=== PATIENT | male | born 1950 | race Caucasian/White ===

== ENCOUNTER → 2021-06-15 14:48 | Outpatient (CLI) | payer MEDICARE, SELFPAY ==
--- NOTE | ~2021-06-15 | XR_ITS ---
EXAMINATION: XR knee RT 3V DATE: 06/15/2021 15:09 INDICATION: Right knee pain TECHNIQUE: Three views of the right knee were obtained. COMPARISON: None. FINDINGS: Alignment is normal. No fracture or osteochondral lesion. There is tricompartmental osteoar thritis, severe in the lateral patellofemoral compartment. There is a moderate size knee joint effusi on. Soft tissues are unremarkable. IMPRESSION: 1. Tricompartmental osteoarthritis, severe in the lateral patellofemoral compartment. Reviewed, dictated and finalized at location F. IMPRESSION: 1. Tricompartmental osteoarthritis, severe in the lateral patellofemoral compar tment.
== END ==
PROVIDERS: PCP Family Medicine; Visit Provider Family Medicine
DX: M17.11 Unilateral primary osteoarthritis, right knee (principal)
CPT/HCPCS: 73562

== ENCOUNTER 2022-02-28 08:41 | Outpatient (CLI) | payer MEDICARE, SELFPAY ==
[2022-02-28 09:09] LABS: Basophils Absolute Auto 0.1 K/mm3 (0.0-0.1); Basophils Percent Auto 0.9 % (0.2-1.2); Eosinophils Absolute Auto 0.7 K/mm3 (0-0.3); Eosinophils Percent Auto 10.5 % (0-4.4); Hematocrit 39.7 % (42.0-52.0); Hemoglobin 13.3 g/dL (14.0-18.0); Immature Granulocyte Absolute 0.02 K/mm3 (0.00-0.031); Immature Granulocyte Percent A 0.3 % (0-0.5); Lymphocytes Absolute Auto 1.39 K/mm3 (0.9-3.2); Mean Corpuscular HGB Conc 33.5 g/dl (32-36); Mean Corpuscular Hemoglobin 31.7 pg (26-34); Mean Corpuscular Volume 94.5 fl (80-100); Mean Platelet Volume 8.6 fl (7.4-10.4); Monocytes Absolute Auto 0.5 K/mm3 (0.1-0.6); Monocytes Percent Auto 6.9 % (2.6-8.5); Neutrophils Absolute Auto 4.3 K/mm3 (1.3-6.7); Neutrophils Percent Auto 61.4 % (45.5-73.1); Platelet Count Result 255 k/mm3 (150-375); Red Cell Distribution Width 14.1 % (11.5-14.5); White Blood Count 6.9 K/mm3 (4.5-10.0)
[2022-02-28 09:19] LABS: Alanine Aminotransferase 25 U/L (6-50); Albumin Level 4.2 g/dL (3.5-5.1); Alkaline Phosphatase 79 U/L (38-126); Anion Gap 5 mmol/L (8-16); Aspartate Amino Transferase 24 U/L (17-59); Bilirubin,Total 0.9 mg/dL (0.2-1.3); Blood Urea Nitrogen 16 mg/dL (9-20); Calcium 8.7 mg/dL (8.4-10.2); Carbon Dioxide 30 mmol/L (22-30); Chloride 105 mmol/L (98-107); Estimated Glomerular Filt Rate 60; Glucose 101 mg/dL (65-110); Potassium 3.9 mmol/L (3.4-5.0); Sodium 140 mmol/L (137-145)
--- NOTE | 2022-02-28 09:20 | ECG_ITS ---
Measurements Intervals [place] Rate: 61 P: 31 NV: 172 QRS: 17 QRSD: 93 T: 11 QT: 398 QTc: 401 Interpretive Statements SINUS RHYTHM MINIMAL Q WAVES- INFERIOR LEADS BORDERLINE ECG COMPARED TO ECG 09/05/2018 08:03:22 NO SIGNIFICANT CHANGES Electronically Signed On 02-28-2022 10:23:42 [employer]ING [employer] by Jose Alfredo Jimenez D.O.
[2022-02-28 09:50] LABS: Prostate Specific Antigen 5.3 ng/mL (< OR = 4.0)
== END 2022-02-28 08:42 | disposition home or self-care (01) ==
PROVIDERS: PCP Family Medicine; Referring Provider Physician Assistant; Visit Provider Orthopaedic Surgery
DX: M17.11 Unilateral primary osteoarthritis, right knee (principal); R97.20 Elevated prostate specific antigen [PSA]; I11.9 Hypertensive heart disease without heart failure; Z01.818 Encounter for other preprocedural examination; R94.31 Abnormal electrocardiogram [ECG] [EKG]
CPT/HCPCS: 36415; 80053; 84153; 85025; 93005

== ENCOUNTER 2022-04-26 09:52 | Outpatient (CLI) | payer MEDICARE, SELFPAY ==
[2022-04-26 11:21] LABS: Basophils Percent Auto 0.6 % (0.2-1.2); Eosinophils Absolute Auto 0.3 K/mm3 (0-0.3); Eosinophils Percent Auto 3.7 % (0-4.4); Hemoglobin 14.2 g/dL (14.0-18.0); Immature Granulocyte Absolute 0.03 K/mm3 (0.00-0.031); Immature Granulocyte Percent A 0.4 % (0-0.5); Lymphocytes Absolute Auto 1.48 K/mm3 (0.9-3.2); Mean Corpuscular Hemoglobin 30.8 pg (26-34); Mean Corpuscular Volume 93.3 fl (80-100); Mean Platelet Volume 8.9 fl (7.4-10.4); Monocytes Absolute Auto 0.5 K/mm3 (0.1-0.6); Monocytes Percent Auto 7.4 % (2.6-8.5); Neutrophils Absolute Auto 4.4 K/mm3 (1.3-6.7); Neutrophils Percent Auto 65.9 % (45.5-73.1); Platelet Count Result 216 k/mm3 (150-375); Red Blood Count 4.61 M/mm3 (4.6-6.20); Red Cell Distribution Width 13.3 % (11.5-14.5); White Blood Count 6.7 K/mm3 (4.5-10.0)
[2022-04-26 11:32] LABS: Appearance Urine Clear (Clear); Bilirubin Urine Negative (Negative); Blood Urine Negative (Negative); Color Urine Yellow (Yellow); Glucose Urine UA Negative (Negative); Ketones Urine Negative (Negative); Leukocyte Esterase Ur Negative LEU/UL (Negative); Nitrate Urine Negative (Negative); Protein Urine Negative (Negative); Specific Grav Ur 1.018 (1.001-1.035); Urobilinogen Urine 0.2 mg/dL (<2.0)
[2022-04-26 11:32] LABS: Albumin Level 4.6 g/dL (3.5-5.1); Anion Gap 5 mmol/L (8-16); Blood Urea Nitrogen 19 mg/dL (9-20); Calcium 9.4 mg/dL (8.4-10.2); Carbon Dioxide 33 mmol/L (22-30); Chloride 104 mmol/L (98-107); Estimated Glomerular Filt Rate > 60; Glucose 104 mg/dL (65-110); Potassium 4.9 mmol/L (3.4-5.0); Sodium 142 mmol/L (137-145)
[2022-04-26 11:33] LABS: Prothrombin Time 12.8 Seconds (11.1-14.7)
[2022-04-26 11:36] LABS: Hemoglobin A1C 5.2 % (<5.7)
[2022-04-26 12:12] LABS: Urine Cotinine NEGATIVE
[2022-04-26 12:16] LABS: Add Urine Microscopic? NO
== END 2022-04-26 09:53 | disposition home or self-care (01) ==
LOC: ANHSURGERY 09:56
PROVIDERS: PCP Family Medicine; Visit Provider Orthopaedic Surgery
DX: M17.11 Unilateral primary osteoarthritis, right knee (principal); Z01.818 Encounter for other preprocedural examination
CPT/HCPCS: 80048; 80307; 81003; 82040; 83036; 85025; 85610; 85730; 87081

== ENCOUNTER 2022-05-10 00:08 | Day surgery (SDC) | payer MEDICARE, SELFPAY ==
[2022-04-26 10:02] VITALS: BMI 25.2
--- NOTE | 2022-04-26 10:41 | PC.NURSE ---
Addendum entered by Yi Peterson RN 04/26/22 11:13: TAKE DOXAZOSIN MORNING OF SURGERY Original Note: Report to the Outpatient Waiting Room, entrance under the green pavilion located off [facility], at time _0600 on date 05/10/22 . Planned Procedure Time: 0730 . Time changes happen often and if your time is changed the preop area will call you the afternoon before. - You and your visitor will be asked to self-screen and do not enter if you have any COVID symptoms. - Only one visitor is requested with a max of two and NO children visitors are allowed at this time. - The patient visitor may be requested to leave or wait in car when not with patient due to distancing restrictions. - A mask is optional within the hospital at this time. Patients may have clear liquids (water, carbonated beverages, clear teas, apple juice) until 3 hours prior to surgery with a maximum of 20 ounces. - No food from midnight until time of surgery - Infants may have breast milk until 4 hours before surgery, formula 6 hours prior to surgery. - Children will be allowed to drink immediately following surgery. If applicable, please bring a bottle or sippy cup to assist with drinking. Juice, water, soda, and popsicles are readily available. For infants on formula, please bring formula the day of surgery. Pacifiers are allowed. Take the following medications with a SIP of water the morning of surgery: ___METOPROLOL DO NOT STOP ANY OF YOUR OTHER PRESCRIPTION MEDICATIONS PRIOR TO SURGERY ?EXCEPT THE FOLLOWING Medications to discontinue per physician ____ASPIRIN PER DR MARINO INSTRUCTIONS Please no make-up, nail macanese, hairspray, perfume, deodorant, or body powder the day of surgery. No jewelry (including any body piercings) or valuables the day of surgery, leave them at home. Please take a shower or bath the night before, or the morning of, surgery with an antibacterial soap. Wear comfortable, loose fitting clothing. Children are encouraged to wear pajamas. - Jewelry must be removed prior to entering the operating room. Rings and piercings that are not removed may be cut off. - The hospital will not accept responsibility for valuables. - Please leave all valuables, including medications, at home the day of surgery. If you are going home after surgery, a licensed tank driver must drive you home. - NO public transportation without another adult if you receive anesthesia. - We recommend that an adult stay with you for 24 hours following discharge. - We also recommend that you do not drive, make important decision, drink alcoholic beverages, or take any drugs that were not prescribed by your health care provider for at least 24 hours after your discharge time. For Pediatric surgeries, we recommend two adults accompany the child home. Follow any additional instructions given to you from your surgeon. If you or anyone in your household have experienced Covid symptoms in the past week, please notify your surgeon or the nurse liaison at the phone number below for possible testing. VERBAL AND WRITTEN instructions given to _PATIENT AND ANGELA and asked if any additional questions and then verbalized understanding. Patient advised to call surgeon office or pre surgery nurse liaison [phone] if any additional questions.
[2022-04-26 10:54] VITALS: BP 181/90; PULSE 56; RESP 18; TEMP 37; O2SAT 98
[2022-05-10] VITALS (15 sets, daily range): BP systolic 134–169; BP diastolic 72–94; PULSE 54–86; RESP 12–18; TEMP 36.2–37.1; O2SAT 97–100; BMI 27.5
--- NOTE | ~2022-05-10 | XR_ITS ---
XR_[id number]_CR DATE: 05/10/2022 10:11 INDICATION: Right total knee postoperative examination TECHNIQUE: Postoperative AP and crosstable lateral views of right knee COMPARISON: None FINDINGS: Status post right knee arthroplasty. Skin noe are noted along the anterior aspect of th e knee. There is expected postoperative subcutaneous and intra-articular gas. No fracture or dislocation, periosteal reaction or bone destruction or unusual radiopaque foreign bod y. IMPRESSION: Right knee arthroplasty Reviewed, dictated and finalized at Location A. Reviewed, dictated and finalized at location B. IMPRESSION: Right knee arthroplasty
[2022-05-10] MEDS: LACTATED RINGERS 1,000 ML 30 ML IV CONT ×2 (06:30→09:49)
[2022-05-10] MEDS: TRANEXAMIC ACID 1,000MG/ISO100 1,000 MG/100 ML BAG 200 MG IVPB (06:39)
[2022-05-10] MEDS: ACETAMINOPHEN 500 MG TABLET 1000 MG PO (06:39)
--- NOTE | 2022-05-10 06:43 | WPDANESEPPF ---
Anes - Initial Pre Proc Eval Procedure: Operation Date: 05/10/22 07:30 Proposed Procedures p Right Total Knee Arthroplasty - Naif Chavez MD Date/Time: 05/10/22 06:43 Surgeon: Naif Chavez MD Pre Op Diagnosis: right knee djd Patient Data Age: 72 Gender: M Height: 1.78 m Weight: 80 kg Last Vital Signs Temp 37.0 C 04/26/22 10:54 Pulse 56 L 04/26/22 10:54 Resp 18 04/26/22 10:54 BP 181/90 H 04/26/22 10:54 Pulse Ox 98 04/26/22 10:54 O2 Del Method Room Air 04/26/22 10:54 Allergies Allergy/AdvReac Type Severity Reaction Status Date / Time pravastatin Allergy Unknown leg cramps Verified 05/10/22 06:45 Home Medications Medication Instructions Recorded Confirmed Type aspirin 81 mg tablet,delayed 81 mg PO DAILY 12/30/18 05/10/22 History release rosuvastatin 20 mg tablet (Crestor) 20 mg PO DAILY 04/06/20 05/10/22 History metoprolol tartrate 25 mg tablet 12.5 mg PO BID 11/28/21 05/10/22 History doxazosin 4 mg tablet 4 mg PO DAILY #30 tabs 04/17/22 05/10/22 Rx acetaminophen 650 mg 1,300 mg PO Q12H PRN Pain 04/26/22 05/10/22 History tablet,extended release (Tylenol Arthritis Pain) Patient hx anesthesia problems: none Family hx anesthesia problems: none Results Review: All pre-operative results and documents have been reviewed as part of the pre-operative evaluation. [facility] Past Medical History Medical History (Updated 05/09/22 @ 14:17 by Andres Goldstein DO) Arthritis Heart attack 2019 HLD (hyperlipidemia) Hypertension with heart disease Left knee DJD Right knee DJD Surgical History Surgical History (Updated 05/09/22 @ 14:17 by Andres Goldstein DO) History of back surgery History of coronary artery stent placement x2, 2019 Family History Family History Mother Hypertension Father Family history of emphysema Social History Social History Smoking status: Never smoker Second hand tobacco smoke exposure: No Additional smoking assessment comments: DENIES ANY FORM OF TOBBACO Alcohol intake: current Alcohol use details: social Substance use: never Substance use type: does not use Living arrangements: with family Occupation/Education: retired Gender identity (if verbalized by the patient): Male Sexual Orientation (if Verbalized by the Patient): Straight or Heterosexual Spiritual care concerns: No Anes - Eval Final PreProcedure Day of Procedure 05/10/22 06:43 Patient weight: normal Heart: regular rate and rhythm Lungs: clear to auscultation Airway: Mallampati scale class II Neurological: alert and oriented Last oral intake: >/= 8 hours ASA classification: III Emergent: no Anesthetic plan: proceed Anesthesia type and monitoring: general LMA and standard monitoring Results Review: All pre-operative results and documents have been reviewed as part of the pre-operative evaluation. Informed Consent: The patient's anesthetic plan and its attendant risks and benefits were discussed with the patient/family/POA. Questions were solicited and answers provided to the satisfaction of the patient/family/POA.
--- NOTE | 2022-05-10 06:51 | WPDANESPNB ---
Anes - Peripheral Nerve Block Date/Time: 05/10/22 06:51 I have discussed with the patient/family/POA the placement of a peripheral nerve block for post-operative pain management, including associated risks, benefits, complications, and side effects. Alternative methods of post-operative analgesia were detailed. Questions were solicited and answers provided to the satisfaction of the patient/family/POA. Time-Out: A pre-procedural Time-Out was completed immediately before starting the procedure and confirmed: Patient Identification, Site, Procedure, Patient Position and the Availability of Requisite Equipment. Clinical Indications: Acute post-operative pain management requested by the operative surgeon. Nerve Block Insertion Note Anes-nerve block: adductor canal right Patient position: supine Skin prep: chlorhexidine Needle: 22 gauge, stimulating, insulated echogenic needle. Needle length: 80 mm Technique: ultrasound Injectate: bupivacaine 0.5% with epi 5 mcg/ml (30cc - no epi) Observations: tolerated well Complications: none Procedure start time:: 722 Procedure end time:: 725
--- NOTE | 2022-05-10 07:14 | WPDHPUPDATE1 ---
History and Physical Update Update Date/Time: 05/10/22 07:14 History and Physical has been reviewed, including an updated exam of the patient. There are NO changes in the patient's condition. Risks, benefits, and alternatives have been discussed and questions answered. Patient agrees to proceed with procedure.
[2022-05-10] MEDS: ceFAZolin 2 GM/D5W 50 ML 2 GM/50 ML BAG IVPB ×3 (07:30→23:39)
[2022-05-10] MEDS: GENTAMICIN BONE CEMENT REFOBACIN 1 EACH TOPICAL (08:38)
[2022-05-10] MEDS: TRANEXAMIC ACID 1,000 MG/10 ML AMPUL 1000 MG IV PUSH (08:52)
[2022-05-10] MEDS: fentaNYL CITRATE INJ (*CRX) 100 MCG/2 ML VIAL 25 MCG IV PUSH ×8 (09:52→10:42)
--- NOTE | 2022-05-10 09:54 | W.PM.PROC2 ---
Procedure Note - Detailed Date of Procedure 05/10/22 Pre-op Diagnosis right knee djd Post-op Diagnosis Same Procedure Performed R TKA Surgeon Naif Chavez MD Anesthesia General Description of Procedure THE RIGHT KNEE WAS PREPPED AND DRAPED IN THE STERILE FASHION. THERE WAS A 10 DEGREE FLEXION CONTRACTURE. A MIDLINE SKIN INCISION WAS MADE. A MEDIAL PARAPATELLAR ARTHROTOMY WAS MADE. THE PATELLA WAS EVERTED. THERE WAS TRICOMPARTMENT DJD. THERE WAS MINIMAL PATELLA DJD. AN INTRAMEDULLARY PRIYA WAS PLACED IN THE FEMUR. A DISTAL FEMORAL CUT WAS MADE IN 5 DEGREES OF VALGUS REMOVING APPROXIMATELY 9 MM OF BONE FROM THE DISTAL FEMUR. THE FEMUR WAS SIZED TO 67.5. A 67.5 FEMORAL CUTTING BLOCK WAS PLACED IN 3 DEGREES OF EXTERNAL ROTATION AND IN ALIGNMENT WITH TIMMY'S LINE AND THE TRANSEPICONDYLAR AXIS. ANTERIOR POSTERIOR AND CHAMFER CUTS WERE MADE. THE CUTS WERE EXCELLENT. NEXT AN INTRAMEDULLARY CUTTING GUIDE WAS PLACED IN THE TIBIA. A TRANS TIBIAL CUT WAS MADE ALONG THE LONG AXIS OF THE TIBIA. APPROXIMATELY 10 MM OF BONE WAS REMOVED FROM THE HIGH SIDE OF THE TIBIA. THE TIBIA WAS THEN PLANED TO A SMOOTH SURFACE. POSTERIOR FEMORAL OSTEOPHYTES WERE REMOVED FROM THE FEMORAL CONDYLES. A 75 TIBIAL TRIAL WAS PLACED IN ALIGNMENT WITH THE 1/3 MEDIAL ASPECT OF THE TIBIAL TUBERCLE. THEN A 67.5 FEMORAL TRIAL COMPONENT WAS PLACED. BOTH HAD EXCELLENT FITS. EVENTUALLY A 10 MM CR POLYETHYLENE TRIAL COMPONENT WAS PLACED. THE KNEE WAS TAKEN THROUGH A RANGE OF MOTION. THE KNEE CAME OUT TO FULL EXTENSION. THERE WAS NO ABNORMAL TILT TO THE PATELLA. THERE WAS GOOD A/P AND VARUS/VALGUS STABILITY. THERE WAS NO EXCESSIVE ROLL BACK WITH FLEXION. THE TRIAL COMPONENTS WERE REMOVED. THEN A 67.5 FEMORAL COMPONENT AND 75 TIBIAL COMPONENT WITH A 10 CR POLYETHYLENE COMPONENT WERE CEMENTED INTO PLACE. ONCE THE CEMENT WAS HARD THE KNEE WAS TAKEN THROUGH A ROM AGAIN AND FOUND TO BE STABLE WITH NO PATELLA TILT NO EXCESSIVE ROLL BACK WITH FLEXION AND GOOD STABILITY WITH COMPLETE AND FULL EXTENSION. THE KNEE WAS IRRIGATED WITH STERILE BETADINE AND WATER FOR ABOUT 3 MINUTES. THE BLEEDERS WERE CAUTERIZED. THE ARTHROTOMY WAS REPAIRED WITH NUMBER 1 VICRYL. THE SUB CUTANEOUS LAYER WITH 2-0 VICRYL AND THE SKIN WITH JONATHAN. THE WOUND WAS WASHED AND A STERILE DRESSING WAS APPLIED. PATIENT WAS EXTUBATED. Estimated Blood Loss -150.0 Pathology None sent Complications No immediate complications Condition Stable Disposition PACU
[2022-05-10] MEDS: SODIUM CHLORIDE 0.9% IV 1,000 ML 125 ML IV CONT (11:53)
[2022-05-10] MEDS: KETOROLAC 15 MG/ML VIAL (*BKC) IV PUSH ×3 (11:53→23:39)
--- NOTE | 2022-05-10 12:05 | ADMGEN ---
This patient, Russell Lau, was admitted to [facility] Surg Room 309-01 at 1110. Patient/family oriented to hospital policies and general routines including ID bracelet, bed and alarms, visiting hours, pain management, procedures, bathroom and other care routines, personal items, smoking policy, room service/diet, and visiting hours. Information on how to activate the Rapid Response Team has been discussed. Patient/Family are encouraged to report perceived risks to care and to ask questions if they do not understand what they are told or what they should do.
[2022-05-10] MEDS: SENNA/DOCUSATE SODIUM TABLET 2 TAB PO (16:59)
[2022-05-10] MEDS: ASPIRIN 325 MG ENTERIC TABLET PO (21:31)
[2022-05-10] MEDS: METOPROLOL TARTRATE 12.5 MG TABLET PO (21:31)
[2022-05-10] MEDS: FAMOTIDINE 20 MG TABLET PO (21:31)
[2022-05-10] MEDS: ROSUVASTATIN 10 MG TABLET 20 MG PO (21:32)
[2022-05-11 00:02] VITALS: BP 129/76; PULSE 73; RESP 15; TEMP 36.7; O2SAT 96
[2022-05-11 04:00] VITALS: BP 131/78; PULSE 66; RESP 16; TEMP 36.2; O2SAT 95
[2022-05-11] MEDS: KETOROLAC 15 MG/ML VIAL (*BKC) IV PUSH ×2 (05:48→13:00)
[2022-05-11 06:32] LABS: Basophils Percent Auto 0.3 % (0.2-1.2); Eosinophils Percent Auto 0.4 % (0-4.4); Hematocrit 33.4 % (42.0-52.0); Immature Granulocyte Absolute 0.05 K/mm3 (0.00-0.031); Immature Granulocyte Percent A 0.5 % (0-0.5); Lymphocytes Percent Auto 12.2 % (18.3-44.2); Mean Corpuscular HGB Conc 32.9 g/dl (32-36); Mean Corpuscular Hemoglobin 30.6 pg (26-34); Mean Corpuscular Volume 92.8 fl (80-100); Mean Platelet Volume 9.3 fl (7.4-10.4); Monocytes Absolute Auto 0.9 K/mm3 (0.1-0.6); Monocytes Percent Auto 9.5 % (2.6-8.5); Neutrophils Absolute Auto 7.6 K/mm3 (1.3-6.7); Neutrophils Percent Auto 77.1 % (45.5-73.1); Platelet Count Result 208 k/mm3 (150-375); Red Cell Distribution Width 13.3 % (11.5-14.5); White Blood Count 9.9 K/mm3 (4.5-10.0)
[2022-05-11 06:39] LABS: Anion Gap 4 mmol/L (8-16); Blood Urea Nitrogen 22 mg/dL (9-20); Calcium 8.4 mg/dL (8.4-10.2); Carbon Dioxide 28 mmol/L (22-30); Chloride 105 mmol/L (98-107); Estimated CRCL calculation 53 ml/min; Estimated Glomerular Filt Rate 60; Glucose 112 mg/dL (65-110); Potassium 4.7 mmol/L (3.4-5.0); Sodium 137 mmol/L (137-145)
[2022-05-11 08:36] VITALS: PULSE 66
[2022-05-11] MEDS: DOXAZOSIN MESYLATE 4 MG TABLET PO (08:36)
[2022-05-11] MEDS: FAMOTIDINE 20 MG TABLET PO (08:36)
[2022-05-11] MEDS: ceFAZolin 2 GM/D5W 50 ML 2 GM/50 ML BAG IVPB (08:36)
[2022-05-11] MEDS: ASPIRIN 325 MG ENTERIC TABLET PO (08:36)
[2022-05-11] MEDS: SENNA/DOCUSATE SODIUM TABLET 2 TAB PO (08:36)
[2022-05-11] MEDS: METOPROLOL TARTRATE 12.5 MG TABLET PO (08:36)
[2022-05-11] MEDS: polyethylene glycoL 3350 17 GM POWD.PACK PO (08:36)
[2022-05-11 08:48] VITALS: BP 132/81; PULSE 57; RESP 17; TEMP 36.4; O2SAT 98
--- NOTE | 2022-05-11 09:02 | P.PNAN_ITS ---
Anes - Prog Note Post-Op Date/Time: 05/11/22 09:02 Cardiovascular status: normal Respiratory status: normal Airway patency: baseline Mental status: baseline Post-Op hydration status: normal Vital Signs: Last Vital Signs Temp 97.5 F L 05/11/22 08:48 Pulse 57 L 05/11/22 08:48 Resp 17 05/11/22 08:48 BP 132/81 05/11/22 08:48 Pulse Ox 98 05/11/22 08:48 O2 Del Method Room Air 05/10/22 13:38 O2 Flow Rate 8 05/10/22 10:05 Pain Score (VAS): 0/10 I/O: Intake & Output 05/10/22 05/11/22 05/11/22 23:59 07:59 15:59 Intake Total 120 50 Output Total 1030 Balance 120 -980 Laboratory Tests 05/11/22 06:06 05/11/22 06:06 05/10/22 05/11/22 05/11/22 06:20 06:06 06:06 WBC 9.9 RBC 3.60 L Hgb 11.0 L D Hct 33.4 L MCV 92.8 MCH 30.6 MCHC 32.9 RDW 13.3 Plt Count 208 MPV 9.3 Immature Gran % (Auto) 0.5 Neut % (Auto) 77.1 H Lymph % (Auto) 12.2 L [place] % (Auto) 9.5 H Eos % (Auto) 0.4 Baso % (Auto) 0.3 Lymph # (Auto) 1.20 [place] # (Auto) 0.9 H Eos # (Auto) 0.0 Baso # (Auto) 0.0 Abs Immat Gran (auto) 0.05 H Absolute Neuts (auto) 7.6 H Absolute Nucleated RBC 0.0 Nucleated RBC % 0.0 Sodium 137 Potassium 4.7 Chloride 105 Carbon Dioxide 28 Anion Gap 4 L BUN 22 H Creatinine 1.20 Estim Creat Clear Calc 53 Estimated GFR 60 Glucose 112 H Calcium 8.4 Blood Type O Positive Antibody Screen Negative Post-procedural complaints: none Patient Feedback: Patient satisfied with anesthetic care.
--- NOTE | 2022-05-11 13:01 | PM.PNORT ---
Progress Note: A&P Assessment and Plan (1) S/P total knee arthroplasty: Qualifiers: Laterality: right Qualified Code(s): Z96.651 - Presence of right artificial knee joint Code(s): Z96.659 - Presence of unspecified artificial knee joint Status: Acute Assessment and Plan: POD #1 : Right TKA Continue PT/OT. WBAT. Walker. HIGH FALL RISK. Continue pain control. Ice Knee. Protect skin. DVT prophylaxis with Aspirin. SCDs. Incentive Spirometry Use reviewed. Monitor Dressing. Change prior to discharge. Bowel Regimen. Dispo: Home with Home Health pending progress with PT/OT Subjective Subjective Date/Time Seen: 05/11/ 13:01 Post Op day: 1 Interval history: POD #1: Right TKA Pain well controlled. Working very well with PT/OT. Hopeful for discharge home today. Review of Systems Review of Systems: All systems reviewed & are unremarkable except as noted in HPI and below Constitutional: Constitutional: Denies fever(s) and Denies headache(s) ENT: Denies headache(s) Cardiovascular: Cardiovascular: Denies chest pain, Denies diaphoresis, Denies palpitations and Denies dyspnea Respiratory: Respiratory: Denies dyspnea Gastrointestinal: Gastrointestinal: Denies abdominal pain, Denies constipation, Denies nausea and Denies vomiting Genitourinary: Genitourinary: Denies dysuria and Reports nocturia Musculoskeletal: Musculoskeletal: Reports arthralgias (Right Knee ) and Reports joint swelling (Right Knee ) Neurologic: Denies headache(s) Endocrine: Endocrine: Denies palpitations Exam Const: General: comfortable and no acute distress Resp: Effort & Inspection: normal respiratory effort Cardio: Rate: regular rate Rhythm: regular rhythm GI: GI Palp: Yes Soft to palpation, No Tenderness to palpation present (GI) and No Guarding due to palpation present (GI) Skin: General skin exam: wounds noted Wounds: wounds noted Other: Incision c/d/i. No surrounding redness/warmth. No hematoma. Mild ecchymosis. No wound dehiscence Neuro: Cognition (Neuro): normal cognition Other: NV intact aside from block. Moves toes. Sensation intact to light touch. +ankle dorsiflexion/plantarflexion. Extrem: Right lower extremity: normal to inspection, knee Details: tenderness (diffuse, mild ) Location: of the patella, swelling (diffuse, consistent with surgical intervention ), abnormal ROM Details: pain with active ROM during, pain with passive ROM during and with range as follows (limited due to recent surgical intervention ); able to extend lower leg actively and ecchymosis (mild ), lower leg (Negative Mary's Sign ) Details: normal to inspection; no erythema and no tenderness, ankle (+ankle dorsiflexion/plantarflexion ) Details: normal to inspection, no edema and normal ROM; no tenderness, no swelling and no ecchymosis and foot Details: normal capillary refill, normal to inspection, vascular exam Details: dorsalis pedis pulse present and motor-sensory exam Details: light-touch normal; no tenderness Left lower extremity: normal to inspection Psych: Mental Status: mental status grossly normal Objective Data Vital Signs Vital Signs: Vital Signs - 24 hr 05/10/22 13:38 05/10/22 16:40 05/10/22 20:03 Temperature 37.0 C 36.9 C Pulse Rate 71 86 Respiratory Rate 18 15 Blood Pressure 135/72 134/74 Pulse Oximetry 97 97 Oxygen Delivery Room Air 05/10/22 21:31 05/11/22 00:02 05/11/22 04:00 Temperature 36.7 C 36.2 C L Pulse Rate 77 73 66 Respiratory Rate 15 16 Blood Pressure 129/76 131/78 Pulse Oximetry 96 95 Oxygen Delivery 05/11/22 08:36 05/11/22 08:48 05/11/22 08:00 Temperature 36.4 C L Pulse Rate 66 57 L Respiratory Rate 17 Blood Pressure 132/81 Pulse Oximetry 98 Oxygen Delivery Room Air Intake/Output Intake/Output: Intake & Output 05/08/22 05/09/22 05/10/22 05/11/22 23:59 23:59 23:59 23:59 Intake Total 690 290 Output Total 100 1030 Balance 5
--- NOTE | 2022-05-11 13:05 | PM.DS ---
DS: Admitting Diagnosis Discharge Date 05/11/22 Admitting Diagnosis Right Knee DJD DS: Discharge Diagnosis Discharge Diagnosis (1) S/P total knee arthroplasty: Qualifiers: Laterality: right Qualified Code(s): Z96.651 - Presence of right artificial knee joint Code(s): Z96.659 - Presence of unspecified artificial knee joint Status: Acute Assessment and Plan: POD #1 : Right TKA Continue PT/OT. WBAT. Walker. HIGH FALL RISK. Continue pain control. Ice Knee. Protect skin. DVT prophylaxis with Aspirin. SCDs. Incentive Spirometry Use reviewed. Monitor Dressing. Change prior to discharge. Bowel Regimen. Dispo: Home with Home Health pending progress with PT/OT DS: Summary Hospital Course Reason for hospitalization: Right TKA Hospital Course: 72 year old male admitted s/p Right TKA for postoperative medical management, pain control and mobilization with PT/OT. Patient progressed well with PT/OT. Pain and vitals remained stable throughout. The patient has been cleared to be discharged home with home health at this time. All discharge care instructions reviewed at depth. New medications reviewed. Follow up planned for 3 weeks in the outpatient orthopedic clinic with Dr. Chavez. Status at Discharge Functional status at discharge: uses cane/walker Overall status at discharge: patient is progressing back to baseline Time Spent with Patient Time attestation: Total time spent providing and/or coordinating discharge services: Exam Const: General: comfortable and no acute distress Resp: Effort & Inspection: normal respiratory effort Cardio: Rate: regular rate Rhythm: regular rhythm Skin: General skin exam: wounds noted Wounds: wounds noted Other: Incision c/d/i. No surrounding redness/warmth. No hematoma. Mild ecchymosis. No wound dehiscence Neuro: Cognition (Neuro): normal cognition Other: NV intact aside from block. Moves toes. Sensation intact to light touch. +ankle dorsiflexion/plantarflexion. Extrem: Right lower extremity: normal to inspection, knee Details: tenderness (diffuse, mild ) Location: of the patella, swelling (diffuse, consistent with surgical intervention ), abnormal ROM Details: pain with active ROM during, pain with passive ROM during and with range as follows (limited due to recent surgical intervention ); able to extend lower leg actively and ecchymosis (mild ), lower leg (Negative Mary's Sign ) Details: normal to inspection; no erythema and no tenderness, ankle (+ankle dorsiflexion/plantarflexion ) Details: normal to inspection, no edema and normal ROM; no tenderness, no swelling and no ecchymosis and foot Details: normal capillary refill, normal to inspection, vascular exam Details: dorsalis pedis pulse present and motor-sensory exam Details: light-touch normal; no tenderness Left lower extremity: normal to inspection Psych: Mental Status: mental status grossly normal DS: Data Data Completed and Pending Labs on day of discharge: Labs from last 24 hours 05/11/22 05/11/22 06:06 06:06 WBC 9.9 RBC 3.60 L Hgb 11.0 L D Hct 33.4 L MCV 92.8 MCH 30.6 MCHC 32.9 RDW 13.3 Plt Count 208 MPV 9.3 Immature Gran % (Auto) 0.5 Neut % (Auto) 77.1 H Lymph % (Auto) 12.2 L [place] % (Auto) 9.5 H Eos % (Auto) 0.4 Baso % (Auto) 0.3 Lymph # (Auto) 1.20 [place] # (Auto) 0.9 H Eos # (Auto) 0.0 Baso # (Auto) 0.0 Abs Immat Gran (auto) 0.05 H Absolute Neuts (auto) 7.6 H Absolute Nucleated RBC 0.0 Nucleated RBC % 0.0 Sodium 137 Potassium 4.7 Chloride 105 Carbon Dioxide 28 Anion Gap 4 L BUN 22 H Creatinine 1.20 Estim Creat Clear Calc 53 Estimated GFR 60 Glucose 112 H Calcium 8.4 Discharge Plan Discharge Patient Disposition: Home Health Service Discharge Instructions: Post Op Total Knee Replacement Instructions Dr. Naif Chavez [phone] Your dressing will be changed prior to your discha
[2022-05-11 13:21] VITALS: BP 127/70; PULSE 61; RESP 16; TEMP 36.7; O2SAT 99
== END 2022-05-11 14:10 | disposition home health service (06) ==
LOC: ANHSURGERY 06:06 → ANH3MEDSUR 10:57
PROVIDERS: PCP Family Medicine; Visit Provider Orthopaedic Surgery
PROC: (CPT 27447; principal; 2022-05-10 07:30)
DX: M17.11 Unilateral primary osteoarthritis, right knee (principal); G89.18 Other acute postprocedural pain; E78.5 Hyperlipidemia, unspecified; I11.9 Hypertensive heart disease without heart failure; I25.2 Old myocardial infarction; Z79.82 Long term (current) use of aspirin; Z95.5 Presence of coronary angioplasty implant and graft
CPT/HCPCS: 27447; 64447; 36415; 73560; 80048; 80307; 81003; 82040; 83036; 85025; 85610; 85730; 86850; 86900; 86901; 87081; 97110; 97116; 97161; 97165; 97530; 97535; A9270; C1713; C1776; J0171; J0690; J1100; J1885; J2270; J2370; J2405; J2704; J2795; J3010; J7030; J7120

== ENCOUNTER 2022-07-05 13:30 | Outpatient (RCR) | payer MEDICARE, SELFPAY ==
--- NOTE | 2022-06-08 16:40 | PTOPEVAL1 ---
Assessment and note entered by Darryl Ortiz, PT, DPT Evaluation Information Assessment Status Evaluation Diagnosis R TKA Onset 05/10/22 Subjective Information Pt he has a R TKA on 05/10/22.Pt completed 3 weeks of PT. Pt states things are going well so far. He states he has the most pain at night and he states it is hard to get comfortable. Pt states he likes to fish, work outdoors, and gardening. Reported Pain Level Pain Score 3: Self Report Assessment PT Clinical Summary Georgi presents to therapy today for his initial evaluation following a R TKA on 05/10/22. Today he demonstrates active knee ROM from 0-118 deg without pain, he also is only lacking ~10 deg from terminal knee extension during a seated long arc quad indicating good quad control. His RLE is grossly 4/5. Ambulation with a cane was addressed today and is looking good. Skilled physical therapy services are indicated to improve stair navigation, ambulation, functional strength and stability, to manage pain, and to return to baseline function. Plan of Care Interventions Gait Training,Hot Pack/Cold Pack,Manual Therapy, Neuro Re-education,Patient/Caregiver Educati, Therapeutic Activities,Therapeutic Exercise PT Services Indicated Yes Treatment Frequency and 2x/wk for 4 wks Duration These treatments will address the objective and functional deficits as defined above. The patient will be advanced safely and appropriately in order for the patient to progress towards his/her prior level of function. Additional exercises will be introduced and as well as a comprehensive home exercise program upon discharge, if needed, ?to ensure carryover of functional gains achieved in the clinic. This treatment plan has been reviewed and agreement upon by the patient.
--- NOTE | 2022-07-05 14:06 | PTOPDC ---
Assessment and note entered by Darryl Ortiz, PT, DPT Evaluation Information Assessment Status Discharge Diagnosis R TKA Onset 05/10/22 Subjective Information Pt states overall he doing good. He states he is now sleeping well and can do anything his wants to do. Pt reports beyond 100% improvement since starting therapy. Pt states he used the weed eater for 1 hour yesterday with only a mild increase in soreness. Pt states he has a history of low back pain with a lumbar surgery leaving him with multiple gait deviations, he states he is walking better now than he has in 10 years. Reported Pain Level Pain Score 1: Self Report Assessment PT Clinical Summary Georgi presents to therapy today for his progress report following 8 visits of skilled therapy to treat the deficits following a R TKA on 05/10/22. Today he demonstrates active knee ROM from 0-118 deg and demonstrates 0-125 deg passive, without pain. Today he demonstrates unlimited functional mobility d/t his knee. He reports no functional limitations and has met all of his therapy goals. He no longer requires skilled services and will be discharged at this time. Plan of Care PT Services Indicated No
== END 2022-07-06 15:57 | disposition home or self-care (01) ==
LOC: ANHGOSHPT 13:30
PROVIDERS: PCP Family Medicine; Visit Provider Orthopaedic Surgery
DX: Z47.1 Aftercare following joint replacement surgery (principal); Z96.651 Presence of right artificial knee joint
CPT/HCPCS: 97014; 97110; 97112; 97140; 97161; 97530; G0283

== ENCOUNTER 2023-05-08 11:54 | Inpatient (IN) | payer MEDICARE, SELFPAY ==
[2023-05-08] VITALS (35 sets, daily range): BP systolic 143–181; BP diastolic 86–106; PULSE 53–79; RESP 8–24; TEMP 35.9–36.9; O2SAT 97–100; BMI 25.2
--- NOTE | ~2023-05-08 | XR_ITS ---
XR chest 2V DATE: 05/08/2023 12:32 INDICATION: Midline chest pain, back pain. History of heart stent. TECHNIQUE: PA and lateral views COMPARISON: 09/03/2018 2 view chest FINDINGS: Bilateral thoracolumbar spinal rods are again noted, not significantly changed since 019. Normal heart size. Mild aortic unfolding. No hilar or mediastinal enlargement. No pulmonary infiltrate or consolidation, pleural effusion or pulmonary vascular congestion or pneumo thorax. IMPRESSION: No active cardiopulmonary disease Reviewed, dictated and finalized at location L.
--- NOTE | 2023-05-08 11:55 | ECG_ITS ---
Measurements Intervals [place] Rate: 68 P: 20 MD: 185 QRS: 2 QRSD: 83 T: 26 QT: 375 QTc: 401 Interpretive Statements SINUS RHYTHM EARLY PRECORDIAL R/S TRANSITION CONSIDER INFERIOR INFARCT, AGE INDETERMINATE BASELINE ARTIFACT- V5 ABNORMAL ECG COMPARED TO ECG 02/28/2022 09:25:43 NO SIGNIFICANT CHANGES Electronically Signed On 05-08-2023 12:49:23 CDT by Jose Alfredo Jimenez D.O.
[2023-05-08 12:21] LABS: Basophils Percent Auto 0.5 % (0.2-1.2); Eosinophils Absolute Auto 0.2 K/mm3 (0-0.3); Eosinophils Percent Auto 2.8 % (0-4.4); Hematocrit 42.3 % (42.0-52.0); Hemoglobin 14.2 g/dL (14.0-18.0); Immature Granulocyte Absolute 0.02 K/mm3 (0.00-0.031); Immature Granulocyte Percent A 0.3 % (0-0.5); Lymphocytes Absolute Auto 1.41 K/mm3 (0.9-3.2); Lymphocytes Percent Auto 22.3 % (18.3-44.2); Mean Corpuscular HGB Conc 33.6 g/dl (32-36); Mean Corpuscular Hemoglobin 31.3 pg (26-34); Mean Corpuscular Volume 93.4 fl (80-100); Mean Platelet Volume 9.3 fl (7.4-10.4); Monocytes Absolute Auto 0.4 K/mm3 (0.1-0.6); Neutrophils Absolute Auto 4.3 K/mm3 (1.3-6.7); Neutrophils Percent Auto 68.1 % (45.5-73.1); Platelet Count Result 224 k/mm3 (150-375); Red Blood Count 4.53 M/mm3 (4.6-6.20); Red Cell Distribution Width 14.7 % (11.5-14.5); White Blood Count 6.3 K/mm3 (4.5-10.0)
[2023-05-08] MEDS: ASPIRIN 81 MG CHEWABLE TABLET 324 MG PO (12:22)
[2023-05-08 12:31] LABS: Alanine Aminotransferase 39 U/L (6-50); Albumin Level 4.4 g/dL (3.5-5.1); Alkaline Phosphatase 81 U/L (38-126); Anion Gap 4 mmol/L (8-16); Aspartate Amino Transferase 43 U/L (17-59); Bilirubin,Total 0.8 mg/dL (0.2-1.3); Blood Urea Nitrogen 15 mg/dL (9-20); Calcium 9.4 mg/dL (8.4-10.2); Carbon Dioxide 31 mmol/L (22-30); Chloride 104 mmol/L (98-107); Estimated CRCL calculation 52 ml/min; Estimated Glomerular Filt Rate 60; Glucose 125 mg/dL (65-110); Lipase 39 U/L (23-300); Potassium 3.8 mmol/L (3.4-5.0); Sodium 139 mmol/L (137-145)
[2023-05-08 12:33] LABS: INR 0.9; Partial Thromboplastin Time 34.7 Seconds (22.3-36.8)
[2023-05-08 12:44] LABS: Troponin I 0.443 ng/mL (0.000-0.034)
--- NOTE | 2023-05-08 12:57 | ED.CHESTPAIN ---
HPI - Chest Pain General Chief Complaint: Chest Pain Stated Complaint: chest pain Time Seen by Provider: 05/08/23 12:06 History of Present Illness HPI narrative: 73-year-old male with a history of CAD, hyperlipidemia, hypertension presenting with chest pain. Patient states that for the last 4 days he has had exertional chest pressure that sometimes goes into his back. States that he was at the gym and developed central chest pressure so he rested and it went away. He states that he than trait an exercise bike was able to do about 15 minutes before the heaviness became severe again so he stopped. No significant shortness of breath, reports mild lightheadedness. No leg swelling. No further complaints. Related Data Home Medications Medication Instructions Recorded Confirmed aspirin 81 mg tablet,delayed 81 mg PO DAILY@1700 12/30/18 05/08/23 release rosuvastatin 20 mg tablet (Crestor) 20 mg PO HS 04/06/20 05/08/23 acetaminophen 650 mg 1,300 mg PO Q12H PRN Pain 04/26/22 05/08/23 tablet,extended release (Tylenol Arthritis Pain) doxazosin 8 mg tablet 8 mg PO DAILY 05/08/23 05/08/23 Allergies Allergy/AdvReac Type Severity Reaction Status Date / Time pravastatin Allergy Intermediate leg cramps Verified 05/08/23 17:47 valsartan Allergy Intermediate Diarrhea Verified 05/08/23 17:47 Review of Systems Review of Systems: All systems reviewed & are unremarkable except as noted in HPI and below PMFSH Past Medical History Medical History Arthritis Coronary artery disease History of stents the right coronary artery. Degenerative joint disease Hyperlipidemia Hypertension Surgical History Surgical History History of arthroplasty of left knee History of bilateral carpal tunnel release History of cardiac catheterization History of coronary artery stent placement (08/2018) Drug-eluting stent to right coronary artery x2. History of spinal surgery L1-L2 diskectomy and fusion Thoracic spine fusion. Family History Family History Mother Hypertension Father Emphysema lung Social History Social History Social History: Surrogate medical decision maker: Aviva Lau, spouse. Code status: Full code. Smoking status: Never smoker Second hand tobacco smoke exposure: No Alcohol intake: current Drinks per week: 1 Alcohol use details: Social alcohol use in moderation. Substance use: never Substance use type: does not use Do You Feel Safe in your Home?: Yes Lack of Transportation: No Lack of Food: Never True Current Housing: I Have Housing Concerned About Future Housing: No Difficulty Paying Gas/Electric Bills: No Difficulty Paying for Meds: No Currently Unemployed: No Education: Trade/Vocational Certificate Difficulty w/ Childcare or Family Care: No Living arrangements: with family Additional living arrangements comments: Lives with spouse in [place]. They have 2 children. 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 Spiritual care concerns: No Exam Narrative: GENERAL: Well-appearing, In no acute distress, pleasant cooperative HEAD: Normocephalic, atraumatic. EYES: PERRLA and EOMI. ENT: grossly unremarkable NECK: Supple. CHEST: Clear to auscultation. No respiratory distress. HEART: Regular rate and rhythm. Normal peripheral pulses. ABDOMEN: Soft, nontender, nondistended EXTREMITIES: Normal range of motion. No edema. SKIN: Warm, dry, no rash. NEURO: No focal deficits. Alert and oriented x3. PSYCH: Normal mood and affect. Course Vital Signs Vital signs: Vital Signs Temperature 97.6 F 05/08/23 12:03 Pulse Rate 79 05/08/23 12:03 Respiratory Rate 17 05/08/23 12:
[2023-05-08] MEDS: HEPARIN SODIUM 5,000 UNITS/ML VIAL 4000 UNITS IV PUSH (13:42)
[2023-05-08] MEDS: HEPARIN SOD/D5W 100 UNITS/ML 25,000 UNITS/250 ML BAG 9 UNITS IV CONT (13:44)
--- NOTE | 2023-05-08 13:55 | PM.IMHP ---
H&P: HPI History of Present Illness Date/Time: 05/08/23 14:00 Chief Complaint: Chest pain. Narrative: This is a very pleasant 73-year-old male with history of coronary artery disease status post stent x2 to the right coronary artery [place] [address] Brewer, hypertension, hyperlipidemia, esophageal stricture, and kidney stones who presented to the emergency department for evaluation of chest pain. He went to the gym today and approximately 15 minutes after he started walking on the treadmill he developed mid chest heaviness/pressure associated with mild shortness of breath. His symptoms resolved with rest but recurred when he got on the exercise bike. He goes on to say that he has had intermittent exertional angina over the past 4 days or so. The symptoms are similar to when he had stents placed back in 2019. He denies syncope, near syncope, sweats, pleuritic pain, shortness and breath, nausea, and vomiting. In the ED: Blood pressures have been a bit elevated but vital signs are otherwise stable. Initial troponin was elevated 0.443. EKG did not demonstrate any acute ST segment depressions or elevations. His other labs were otherwise unremarkable. He was given aspirin 324 mg and was started on heparin drip. He is being admitted in this setting for close monitoring and Cardiology consultation. Review of Systems Review of Systems: Twelve systems were reviewed and are negative except for as per HPI. [facility] Past Medical History Medical History Arthritis Coronary artery disease History of stents the right coronary artery. Degenerative joint disease Hyperlipidemia Hypertension Surgical History Surgical History (Updated 05/08/23 @ 20:59 by Charis Valenzuela PA-C) History of arthroplasty of left knee History of bilateral carpal tunnel release History of cardiac catheterization History of coronary artery stent placement (08/2018) Drug-eluting stent to right coronary artery x2. History of spinal surgery L1-L2 diskectomy and fusion Thoracic spine fusion. Family History Family History Mother Hypertension Father Emphysema lung Social History Social History Social History: Surrogate medical decision maker: Aviva Lau, spouse. Code status: Full code. Smoking status: Never smoker Second hand tobacco smoke exposure: No Alcohol intake: current Drinks per week: 1 Alcohol use details: Social alcohol use in moderation. Substance use: never Substance use type: does not use Do You Feel Safe in your Home?: Yes Lack of Transportation: No Lack of Food: Never True Current Housing: I Have Housing Concerned About Future Housing: No Difficulty Paying Gas/Electric Bills: No Difficulty Paying for Meds: No Currently Unemployed: No Education: Trade/Vocational Certificate Difficulty w/ Childcare or Family Care: No Living arrangements: with family Additional living arrangements comments: Lives with spouse in [place]. They have 2 children. 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 Spiritual care concerns: No Meds Home Medications and Allergies Home Medications Medication Instructions Recorded Confirmed Type aspirin 81 mg tablet,delayed 81 mg PO DAILY@1700 12/30/18 05/08/23 History release rosuvastatin 20 mg tablet (Crestor) 20 mg PO HS 04/06/20 05/08/23 History metoprolol tartrate 25 mg tablet 12.5 mg PO BID 11/28/21 05/08/23 History acetaminophen 650 mg 1,300 mg PO Q12H PRN Pain 04/26/22 05/08/23 History tablet,extended release (Tylenol Arthritis Pain) doxazosin 8 mg tablet 8 mg PO DAILY 05/08/23 05/08/23 History Allergies Allergy/AdvReac Type Severity Reaction Status Date / Time pravastatin Allergy Intermediat
--- NOTE | 2023-05-08 14:56 | ECG_ITS ---
Measurements Intervals [place] Rate: 52 P: 16 GA: 191 QRS: -1 QRSD: 86 T: 25 QT: 408 QTc: 380 Interpretive Statements SINUS BRADYCARDIA EARLY PRECORDIAL R/S TRANSITION CONSIDER INFERIOR INFARCT, AGE INDETERMINATE ABNORMAL ECG BASELINE ARTIFACT- I, II, AVR, V1 COMPARED TO ECG 05/08/2023 12:02:28 SINUS BRADYCARDIA NOW PRESENT Electronically Signed On 05-08-2023 15:18:06 CDT by Jose Alfredo Jimenez D.O.
[2023-05-08 15:49] LABS: Troponin I 0.433 ng/mL (0.000-0.034)
--- NOTE | 2023-05-08 17:07 | ADMGEN ---
This patient, Russell Lau, was admitted to IMU Room 214-01. Patient/family oriented to hospital policies and general routines including ID bracelet, bed and alarms, visiting hours, pain management, procedures, bathroom and other care routines, personal items, smoking policy, room service/diet, and visiting hours. Information on how to activate the Rapid Response Team has been discussed. Patient/Family are encouraged to report perceived risks to care and to ask questions if they do not understand what they are told or what they should do.
--- NOTE | 2023-05-08 17:57 | ECG_ITS ---
Measurements Intervals [place] Rate: 51 P: 12 CT: 179 QRS: 3 QRSD: 89 T: 35 QT: 436 QTc: 403 Interpretive Statements SINUS BRADYCARDIA CONSIDER INFERIOR INFARCT, AGE INDETERMINATE ABNORMAL ECG COMPARED TO ECG 05/08/2023 15:01:49 NO SIGNIFICANT CHANGES Electronically Signed On 05-08-2023 19:06:19 CDT by Jose Alfredo Jimenez D.O.
[2023-05-08 18:23] LABS: Troponin I 0.422 ng/mL (0.000-0.034)
[2023-05-08 20:21] LABS: Prothrombin Time 14.1 Seconds (11.1-14.7)
[2023-05-08 20:24] LABS: Partial Thromboplastin Time 119.6 Seconds (22.3-36.8)
[2023-05-08] MEDS: METOPROLOL TARTRATE 12.5 MG TABLET PO (21:51)
[2023-05-09] VITALS (28 sets, daily range): BP systolic 104–173; BP diastolic 64–96; PULSE 50–123; RESP 12–22; TEMP 35.7–36.8; O2SAT 95–100
--- NOTE | 2023-05-09 | ECHO_ITS ---
Patient Info Name: Russell Lau Age: 73 years : 1950 Gender: Male Ht: 70 in Wt: 173 lbs BSA: 1.98 m2 HR: 80 bpm Heart Rhythm: Sinus Rhythm Technical Quality: Good Exam Date: 05/09/2023 1:01 PM Exam Location: Echo Lab Patient Status: Inpatient Admit Date: 05/08/2023 Staff Ordering Physician: Saira Baron MD ([email or web address]) Inspecting Engineer: David Benitez RDCS Attending Provider: Vince Santizo MD Referring Physician: Tod RG; Exam Type: CA echo dop color flow w con Study Info Indications - NSTEMI Complete two-dimensional, color flow and Doppler transthoracic echocardiogram is performed with contrast to opacify the left ventricle and to improve the deliniation of the left ventricle endocardial borders. History/Risk Factors Hypertension: Yes Summary 1. Left ventricular chamber dimension is normal. 2. Left ventricular systolic function is normal, estimated at >70%. 3. There is mildly increased left ventricular wall thickness. 4. The left ventricular diastolic function is grade I diastolic dysfunction. 5. Right ventricular systolic function is normal. 6. No significant valvular disease. 7. The aortic root size at the sinus of Valsalva is borderline dilated. Left Ventricle Left ventricular chamber dimension is normal. Left ventricular systolic function is normal, estimated at >70%. There is mildly increased left ventricular wall thickness. The left ventricular diastolic function is grade I diastolic dysfunction. Right Ventricle Right ventricular chamber dimension is normal. Right ventricular systolic function is normal. Left Atria Left atrial chamber dimension is normal. Right Atria Right atrial chamber dimension is normal. Atrial Septum Intact interatrial septum visualized by color flow imaging. Aortic Valve The aortic valve is trileaflet. There is no aortic valve stenosis. There is no aortic valve regurgitation. There is mild aortic valve calcification. Pulmonic Valve The pulmonic valve is not well visualized. Mitral Valve There is trace mitral valve regurgitation. Tricuspid Valve There is trace tricuspid valve regurgitation. Pericardium/Pleural The pericardium appears epicardial fat pad. There is no pericardial effusion. Inferior Vena Cava Normal inferior vena cava with >50% collapse upon inspiration consistent with normal right atrial pressure, 3 mmHg. Aorta The aortic root size at the sinus of Valsalva is borderline dilated. Left Ventricular Outflow Tract Name Value Normal LVOT 2D LVOT Diameter 1.94 cm LVOT Doppler LVOT Peak Gradient 7 mmHg LVOT Mean Gradient 4 mmHg LVOT VTI 28.85 cm LVOT VTI/AV VTI Ratio 0.83 LVOT Stroke Volume 85.27 ml LVOT CO 6.59 l/min LVOT CI 3.33 L/min/m2 Pulmonic Valve Name Value Normal PV Doppler
[2023-05-09 03:05] LABS: Basophils Percent Auto 0.4 % (0.2-1.2); Eosinophils Absolute Auto 0.3 K/mm3 (0-0.3); Eosinophils Percent Auto 3.5 % (0-4.4); Hematocrit 37.2 % (42.0-52.0); Hemoglobin 12.8 g/dL (14.0-18.0); Immature Granulocyte Absolute 0.02 K/mm3 (0.00-0.031); Immature Granulocyte Percent A 0.3 % (0-0.5); Lymphocytes Absolute Auto 2.31 K/mm3 (0.9-3.2); Mean Corpuscular HGB Conc 34.4 g/dl (32-36); Mean Corpuscular Hemoglobin 31.7 pg (26-34); Mean Corpuscular Volume 92.1 fl (80-100); Mean Platelet Volume 9.1 fl (7.4-10.4); Monocytes Absolute Auto 0.5 K/mm3 (0.1-0.6); Monocytes Percent Auto 7.2 % (2.6-8.5); Neutrophils Absolute Auto 4.1 K/mm3 (1.3-6.7); Neutrophils Percent Auto 56.6 % (45.5-73.1); Platelet Count Result 204 k/mm3 (150-375); Red Blood Count 4.04 M/mm3 (4.6-6.20); Red Cell Distribution Width 14.6 % (11.5-14.5); White Blood Count 7.2 K/mm3 (4.5-10.0)
[2023-05-09 03:15] LABS: Anion Gap 3 mmol/L (8-16); Blood Urea Nitrogen 17 mg/dL (9-20); Calcium 8.8 mg/dL (8.4-10.2); Carbon Dioxide 28 mmol/L (22-30); Chloride 106 mmol/L (98-107); Estimated CRCL calculation 56 ml/min; Estimated Glomerular Filt Rate > 60; Glucose 91 mg/dL (65-110); Magnesium 2.2 mg/dL (1.6-2.3); Potassium 3.6 mmol/L (3.4-5.0); Sodium 137 mmol/L (137-145)
[2023-05-09 03:18] LABS: Partial Thromboplastin Time 70.9 Seconds (22.3-36.8)
[2023-05-09] MEDS: HEPARIN SODIUM 5,000 UNITS/ML VIAL 3000 UNITS IV PUSH (03:33)
--- NOTE | 2023-05-09 09:03 | PM.CNCAR ---
Assessment and Plan Assessment and plan (1) Non-ST elevation myocardial infarction (NSTEMI): Code(s): I21.4 - Non-ST elevation (NSTEMI) myocardial infarction Status: Acute Assessment and Plan: Recommend cardiac catheterization. Discussed the procedure with the patient, including indicatio for the procedure, procedure details, risks vs benefits, etc. Patient agreeable to proceed. Will plan for cardiac catheterization today. Continue Heparin drip in the meantime. Continue ASA 81mg once daily. Continue Rosuvastatin. Continue beta barbie. (2) Coronary artery disease: Code(s): I25.10 - Atherosclerotic heart disease of [place] coronary artery without angina pectoris Status: Acute Assessment and Plan: As above. (3) Hypertension: Code(s): I10 - Essential (primary) hypertension Status: Acute Assessment and Plan: Blood pressures are elevated in the setting of NSTEMI. Will reassess after cardiac catheterization is done. Continue Metoprolol. (4) Hyperlipidemia: Code(s): E78.5 - Hyperlipidemia, unspecified Status: Acute Assessment and Plan: Continue high-intensity statin. History of Present Illness History of Present Illness Consult date/time: 05/09/23 09:03 Requesting physician: Charis Valenzuela PA-C Consult reason: chest pain Reason For Visit: nstemi Narrative: We are consulted for NSTEMI. This is a 73 year old male with coronary artery disease s/p prior stents to the RCA in 2019, hypertension, hyperlipidemia who presented to [place] [facility] for chest pain evaluation. Patient has been having substernal pressure-like chest pain that occurs with exertion for the past four days. Lasts for about 5 minutes or so and resolves with rest. No radiation of pain. No associated shortness of breath, palpitations. Workup showed EKGs with sinus rhythm without ischemic changes. Troponins are elevated at 0.443, 0.433, and 0.422. Patient denies any chest pain at rest. He was started on Heparin drip and admitted for further workup/management of NSTEMI. Patient denies tobacco use. Review of Systems Review of Systems: All systems reviewed & are unremarkable except as noted in HPI and below (HPI) [facility] Past Medical History Medical History Arthritis Coronary artery disease History of stents the right coronary artery. Degenerative joint disease Hyperlipidemia Hypertension Surgical History Surgical History History of arthroplasty of left knee History of bilateral carpal tunnel release History of cardiac catheterization History of coronary artery stent placement (08/2018) Drug-eluting stent to right coronary artery x2. History of spinal surgery L1-L2 diskectomy and fusion Thoracic spine fusion. Family History Family History Mother Hypertension Father Emphysema lung Social History Social History Social History: Surrogate medical decision maker: Aviva Sid, spouse. Code status: Full code. Smoking status: Never smoker Second hand tobacco smoke exposure: No Alcohol intake: current Drinks per week: 1 Alcohol use details: Social alcohol use in moderation. Substance use: never Substance use type: does not use Do You Feel Safe in your Home?: Yes Lack of Transportation: No Lack of Food: Never True Current Housing: I Have Housing Concerned About Future Housing: No Difficulty Paying Gas/Electric Bills: No Difficulty Paying for Meds: No Currently Unemployed: No Education: Trade/Vocational Certificate Difficulty w/ Childcare or Family Care: No Living arrangements: with family Additional living arrangements comments: Lives with spouse in [place]. They have 2 children. Occupation/Education: retired Additional occupation/educ
[2023-05-09] MEDS: METOPROLOL TARTRATE 12.5 MG TABLET PO (09:08)
[2023-05-09] MEDS: DOXAZOSIN MESYLATE 4 MG TABLET 8 MG PO (09:08)
[2023-05-09] MEDS: ACETAMINOPHEN 325 MG TABLET 650 MG PO (09:09)
--- NOTE | 2023-05-09 09:11 | WPDMODSED ---
Moderate Sedation Note-Pt Data Patient Data Diagnosis: NSTEMI Present Complaint: NSTEMI Procedure to be performed/Plan: Coronary angiography, left heart cath, +/- PCI Allergies Allergy/AdvReac Type Severity Reaction Status Date / Time pravastatin Allergy Intermediate leg cramps Verified 05/08/23 17:47 valsartan Allergy Intermediate Diarrhea Verified 05/08/23 17:47 Home Medications Medication Instructions Recorded Confirmed Type aspirin 81 mg tablet,delayed 81 mg PO DAILY@1700 12/30/18 05/08/23 History release rosuvastatin 20 mg tablet (Crestor) 20 mg PO HS 04/06/20 05/08/23 History metoprolol tartrate 25 mg tablet 12.5 mg PO BID 11/28/21 05/08/23 History acetaminophen 650 mg 1,300 mg PO Q12H PRN Pain 04/26/22 05/08/23 History tablet,extended release (Tylenol Arthritis Pain) doxazosin 8 mg tablet 8 mg PO DAILY 05/08/23 05/08/23 History Current Medications: Active Medications Acetaminophen (Acetaminophen 325 Mg Tablet) 650 mg PO Q6H PRN PRN Reason: Mild Pain (1-3) or Fever Last Admin: 05/09/23 09:09 Dose: 650 mg Aspirin (Aspirin 81 Mg Enteric Tablet) 81 mg PO DAILY@1700 DAVEY Doxazosin Mesylate (Doxazosin Mesylate 4 Mg Tablet) 8 mg PO DAILY [facility] Last Admin: 05/09/23 09:08 Dose: 8 mg Heparin Sodium (Porcine) (Heparin Sodium 5,000 Units/Ml Vial) 4,000 units IV PUSH PRN PRN PRN Reason: aPTT less than 55 seconds Heparin Sodium (Porcine) (Heparin Sodium 5,000 Units/Ml Vial) 3,000 units IV PUSH PRN PRN PRN Reason: aPTT 55 - 70 seconds Last Admin: 05/09/23 03:33 Dose: 3,000 units Heparin Sodium/Dextrose (Heparin Sodium/D5w 100 Units/Ml) 25,000 units in 250 mls @ 9 mls/hr IV CONT .Q24H [facility]; Protocol Last Titration: 05/09/23 03:36 Dose: 900 units/hr, 9 mls/hr Metoprolol Tartrate (Metoprolol Tartrate 12.5 Mg Tablet) 12.5 mg PO Q12HR [facility] Last Admin: 05/09/23 09:08 Dose: 12.5 mg Morphine Sulfate (Morphine Sulfate (*Crx) 2 Mg/Ml Inj) 2 mg IV PUSH Q4H PRN PRN Reason: Pain Rated 7-10 Rosuvastatin Calcium (Rosuvastatin 10 Mg Tablet) 20 mg PO HS [facility] Sedation/Anesthesia: No previous sedation/anesthesia problems (including family history). [facility] Past Medical History Medical History Arthritis Coronary artery disease History of stents the right coronary artery. Degenerative joint disease Hyperlipidemia Hypertension Surgical History Surgical History History of arthroplasty of left knee History of bilateral carpal tunnel release History of cardiac catheterization History of coronary artery stent placement (08/2018) Drug-eluting stent to right coronary artery x2. History of spinal surgery L1-L2 diskectomy and fusion Thoracic spine fusion. Family History Family History Mother Hypertension Father Emphysema lung Social History Social History Social History: Surrogate medical decision maker: Aviva Lau, spouse. Code status: Full code. Smoking status: Never smoker Second hand tobacco smoke exposure: No Alcohol intake: current Drinks per week: 1 Alcohol use details: Social alcohol use in moderation. Substance use: never Substance use type: does not use Do You Feel Safe in your Home?: Yes Lack of Transportation: No Lack of Food: Never True Current Housing: I Have Housing Concerned About Future Housing: No Difficulty Paying Gas/Electric Bills: No Difficulty Paying for Meds: No Currently Unemployed: No Education: Trade/Vocational Certificate Difficulty w/ Childcare or Family Care: No Living arrangements: with family Additional living arrangements comments: Lives with spouse in [place]. They have 2 children. 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
--- NOTE | 2023-05-09 10:24 | WPDCARDPROC ---
Cardiac Cath Procedure Note Date of procedure:: 05/09/23 Performing physician:: CATHETERIZATION LABORATORY REPORT Procedure Date: 05/09/2023 Engineering Lab Technician: Saira Braon M.D., [facility]? Referring Physician: Saira Baron M.D. ? Anesthesia: Versed and Fentanyl were ordered and given in my presence at 09:50, procedure ended at 10:14. Supervision of nurse monitored moderate sedation with Versed and Fentanyl was provided for 24 minutes. Total of Versed 1mg and Fentanyl 75mcg were administered by the Forensic Artist RN Antonieta Isaacs. Pre-op Diagnosis: Coronary artery disease, NSTEMI Post-op Diagnosis: 1. The left circumflex is completely occluded in the mid portion. There is a faint yukq-kv-tqcy bridging collateral providing some antegrade flow distal to the complete occlusion. There are faint ghtn-xo-zatx collaterals to the very distal OM branches. There are also tmfdu-mj-gnag collaterals filling an OM branch. This was likely the culprit for patient's chest pain / NSTEMI. As the vessel is completely occluded and there are already collaterals, will treat medically. 2. Moderate mid LAD disease. 3. Patent RCA stents with mild in-stent restenosis in the mid portion. 4. Left ventricular end-diastolic pressure of 12mmHg Procedure(s): 1. Moderate sedation 2. Ultrasound-guided access of the right common femoral artery 3. Coronary angiography. 4. Left heart catheterization 5. Angioseal closure of the right common femoral artery Access Site: Right common femoral artery Brief History and Clinical Indications: Patient is a 73 year old male with coronary artery disease s/p prior PCI to the RCA, hypertension, hyperlipidemia who is referred for [facility] for NSTEMI. All risks, benefits and alternatives to left heart catheterization with or without percutaneous coronary intervention was discussed at length with the patient. Risk of complications including but not limited to bleeding, infection, arrhythmia, stroke, worsening kidney function, blood loss, groin hematoma, limb loss, emergency coronary artery bypass grafting, and even were discussed with the patient and all questions were answered. The patient understood and wished to proceed. Time out called, patient name, date of , medical record number, allergies, procedure performed, identify Engineering Lab Technician, patient and staff member concurred with accurate data, procedure carried on. Findings: LEFT HEART CATHETERIZATION FINDINGS: 1. Left main: The left main coronary artery is widely patent without any significant obstructive disease. 2. Left anterior descending: The LAD has moderate 50-60% disease in the mid portion. The first diagonal branch has mild diffuse disease. 3. Ramus: The Ramus has luminal irregularities. No significant obstructive angiographic disease. 4. Left circumflex: The left circumflex is completely occluded in the mid portion. There is a faint nfxp-ay-gxjr bridging collateral providing some antegrade flow distal to the complete occlusion. There are faint wlan-lm-narz collaterals to the very distal OM branches. 5. Right coronary artery: The RCA is the dominant vessel. Widely patent stents in the proximal to distal RCA. There is mild in-stent restenosis of about 20-30% in the mid portion. The RPDA and RPLV have luminal irregularities. No significant obstructive angiographic disease. There are hfamm-il-zxiq collaterals filling an OM branch. 6. Left ventricle: A. End-diastolic pressure 12 mmHg. B. LV gram deferred. C. No significant gradient across aortic valve on catheter pullback. Description of Procedure: Informed consent signed and placed in the chart. Patient transferred to cath lab radiological technologist room. Prepped and draped in usual sterile fashion. 2% lidocaine in right groin area. Micropuncture needle used to access right common femoral artery with Seldinger technique under fluoroscopic and ultrasound guidance. J wire advanced, micropuncture cannula placed. Right iliofemoral angiog
[2023-05-09 10:56] LABS: Cholesterol 113 mg/dL (0-200); HDL Direct 51 mg/dL; Triglycerides 81 mg/dL (<150)
--- NOTE | 2023-05-09 11:02 | PC.NURSE ---
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
[2023-05-09 11:08] LABS: LDL Cholesterol Direct 61 mg/dL
[2023-05-09] MEDS: PERFLUTREN LIPID MICROSPHERES 1.5 ML VIAL DILUTED TO 10 ML TOTAL VOLUME IV PUSH (11:15)
[2023-05-09] MEDS: SODIUM CHLORIDE 0.9% IV 1,000 ML 125 ML IV CONT (11:51)
[2023-05-09] MEDS: ISOSORBIDE MONONITRATE 60 MG TAB.ER.24H PO (11:54)
[2023-05-09] MEDS: CLOPIDOGREL BISULFATE 300 MG TABLET 600 MG PO (11:54)
--- NOTE | 2023-05-09 15:37 | PM.IMPN ---
Progress Note: A&P Assessment and Plan (1) Non-ST elevation myocardial infarction (NSTEMI): Code(s): I21.4 - Non-ST elevation (NSTEMI) myocardial infarction Status: Acute (2) Hypertension: Code(s): I10 - Essential (primary) hypertension Status: Acute (3) Hyperlipidemia: Code(s): E78.5 - Hyperlipidemia, unspecified Status: Acute Plan 73-year-old male with history of coronary artery disease status post stent x2 to the right coronary artery in [place] [address] Brewer, hypertension, hyperlipidemia, esophageal stricture, and kidney stones who presented to the emergency department for evaluation of chest pain. 1. NSTEMI: Continue with heparin drip Continue with aspirin Continue with statin Appreciate cardiology help Plan for cardiac catheterization today 2. DVT prophylaxis: On heparin drip 3. Code status: Full 4. Disposition: Pending cardiac catheterization Time Spent With Patient Time with patient: 15 - 25 minutes Subjective Date/time seen: 05/09/23 15:37 Interval history: No acute events overnight, waiting for cardiac catheterization Review of Systems Review of Systems: All systems reviewed & are unremarkable except as noted in HPI and below Exam Narrative: General: Well-developed, HEENT: Left lid ptosis which is chronic. Pupils reactive. Neck: Supple. No JVD. Respiratory: Lungs are clear to auscultation bilaterally. Cardiovascular: Regular rate and rhythm with S1-S2. Gastrointestinal: Abdomen is soft, nontender, and nondistended with positive bowel sounds. Skin: Warm and dry. No rash or lesions on limited exam. Extremities: No cyanosis, clubbing, or significant edema. Radial and pedal pulses intact. Neurological: Alert. Cranial nerves 2-12 are grossly intact. No gross focal deficits to casual conversation. Psychiatric: Pleasant and cooperative with normal mood and affect. Judgment and insight intact. Objective Data Vital Signs Vital Signs: Vital Signs - 24 hr 05/08/23 16:59 05/08/23 15:45 05/08/23 16:00 Temperature 98.4 F Pulse Rate 56 L 55 L 59 L Respiratory Rate 20 10 L 13 Blood Pressure 150/87 H Pulse Oximetry 100 99 100 Oxygen Delivery 05/08/23 16:15 05/08/23 16:30 05/08/23 16:45 Temperature Pulse Rate 69 69 61 Respiratory Rate 24 H 20 16 Blood Pressure 152/86 H Pulse Oximetry 100 Oxygen Delivery 05/08/23 17:16 05/08/23 17:07 05/08/23 18:00 Temperature 96.6 F L Pulse Rate 72 54 L Respiratory Rate 20 Blood Pressure 160/94 H Pulse Oximetry 99 Oxygen Delivery Room Air 05/08/23 19:08 05/08/23 21:51 05/08/23 21:51 Temperature 96.9 F L Pulse Rate 65 77 Respiratory Rate 18 Blood Pressure 181/94 H 149/90 H Pulse Oximetry 100 Oxygen Delivery 05/08/23 20:00 05/09/23 00:02 05/08/23 20:00 Temperature 97 F L Pulse Rate 69 60 Respiratory Rate 18 Blood Pressure 142/84 H Pulse Oximetry 100 Oxygen Delivery Room Air 05/08/23 22:00 05/09/23 00:00 05/09/23 00:00 Temperature Pulse Rate 62 60 Respiratory Rate Blood Pressure Pulse Oximetry Oxygen Delivery Room Air 05/09/23 02:00 05/09/23 04:31 05/09/23 04:00 Temperature 97.4 F L Pulse Rate 60 55 L 56 L Respiratory Rate 18 Blood Pressure 159/96 H Pulse Oximetry 100 Oxygen Delivery 05/09/23 06:00 05/09/23 08:04 05/09/23 09:08 Temperature 97.3 F L Pulse Rate 56 L 62 75 Respiratory Rate 18 Blood Pressure 173/96 H Pulse Oximetry 97 Oxygen Delivery 05/09/23 09:10 05/09/23 10:37 05/09/23 10:45 Temperature Pulse Rate 63 58 L Respiratory Rate 22 H 13 Blood Pressure 158/89 H 158/95 H Pulse Oximetry 97 97 Oxygen Delivery Room Air Room Air Room Air 05/09/23 08:00 05/09/23 11:00 05/09/23 11:15 Temperature Pulse Rate 59 L 50 L 52 L Respiratory Rate 12 12 Blood Pressure 142/87 H 147/87 H Pulse Oximetry 96 97 Oxygen Delivery Room Air Room Air
[2023-05-09] MEDS: ASPIRIN 81 MG ENTERIC TABLET PO (16:29)
[2023-05-09] MEDS: MORPHINE SULFATE (*CRX) 2 MG/ML INJ IV PUSH (17:44)
--- NOTE | 2023-05-09 17:49 | ECG_ITS ---
Measurements Intervals Orient Rate: 85 P: 21 ND: 173 QRS: 6 QRSD: 82 T: 18 QT: 359 QTc: 428 Interpretive Statements SINUS RHYTHM CONSIDER INFERIOR INFARCT, AGE INDETERMINATE ABNORMAL ECG COMPARED TO ECG 05/08/2023 18:13:05 SINUS RHYTHM NOW PRESENT Electronically Signed On 05-09-2023 19:10:59 CDT by Jose Alfredo Jimenez D.O.
[2023-05-09] MEDS: METOPROLOL TARTRATE INJ 5 MG/5 ML VIAL IV PUSH (18:09)
[2023-05-09] MEDS: METOPROLOL TARTRATE 25 MG TABLET PO (21:01)
[2023-05-09] MEDS: ROSUVASTATIN 10 MG TABLET 20 MG PO (21:01)
[2023-05-10] VITALS (9 sets, daily range): BP systolic 109–119; BP diastolic 68–75; PULSE 55–78; RESP 12–20; TEMP 36.4–36.9; O2SAT 96–98
[2023-05-10 05:13] LABS: Basophils Percent Auto 0.5 % (0.2-1.2); Eosinophils Absolute Auto 0.3 K/mm3 (0-0.3); Eosinophils Percent Auto 4.1 % (0-4.4); Hematocrit 34.8 % (42.0-52.0); Hemoglobin 11.7 g/dL (14.0-18.0); Immature Granulocyte Absolute 0.03 K/mm3 (0.00-0.031); Immature Granulocyte Percent A 0.4 % (0-0.5); Lymphocytes Absolute Auto 1.49 K/mm3 (0.9-3.2); Lymphocytes Percent Auto 19.7 % (18.3-44.2); Mean Corpuscular HGB Conc 33.6 g/dl (32-36); Mean Corpuscular Hemoglobin 31.5 pg (26-34); Mean Corpuscular Volume 93.8 fl (80-100); Mean Platelet Volume 9.7 fl (7.4-10.4); Monocytes Absolute Auto 0.6 K/mm3 (0.1-0.6); Monocytes Percent Auto 7.8 % (2.6-8.5); Neutrophils Absolute Auto 5.1 K/mm3 (1.3-6.7); Neutrophils Percent Auto 67.5 % (45.5-73.1); Platelet Count Result 191 k/mm3 (150-375); Red Blood Count 3.71 M/mm3 (4.6-6.20); Red Cell Distribution Width 14.6 % (11.5-14.5); White Blood Count 7.6 K/mm3 (4.5-10.0)
[2023-05-10 05:22] LABS: Anion Gap 2 mmol/L (8-16); Blood Urea Nitrogen 20 mg/dL (9-20); Calcium 8.4 mg/dL (8.4-10.2); Carbon Dioxide 27 mmol/L (22-30); Chloride 106 mmol/L (98-107); Estimated CRCL calculation 52 ml/min; Estimated Glomerular Filt Rate 60; Glucose 96 mg/dL (65-110); Potassium 3.7 mmol/L (3.4-5.0); Sodium 135 mmol/L (137-145)
--- NOTE | 2023-05-10 09:10 | PM.PNCARD ---
Progress Note: A&P Assessment and Plan (1) Non-ST elevation myocardial infarction (NSTEMI): Code(s): I21.4 - Non-ST elevation (NSTEMI) myocardial infarction Status: Acute Assessment and Plan: Cardiac catheterization shows: 1. The left circumflex is completely occluded in the mid portion. There is a faint ieqj-mk-iuxe bridging collateral providing some antegrade flow distal to the complete occlusion. There are faint eckq-oe-rogw collaterals to the very distal OM branches. There are also gtgde-mg-hvvk collaterals filling an OM branch. This was likely the culprit for patient's chest pain / NSTEMI. As the vessel is completely occluded and there are already collaterals, will treat medically.? 2. Moderate mid LAD disease. 3. Patent RCA stents with mild in-stent restenosis in the mid portion. 4. Left ventricular end-diastolic pressure of 12mmHg Transthoracic echocardiogram shows: LVEF >70%, no significant valvular disease Continue ASA 81mg once daily. Started Plavix, continue 75mg once daily. Continue Metoprolol -- dose increased to 25mg BID. Started Imdur. Okay to discharge home from my standpoint, will arrange close outpatient follow up in our office. (2) Coronary artery disease: Code(s): I25.10 - Atherosclerotic heart disease of [place] coronary artery without angina pectoris Status: Acute Assessment and Plan: As above. (3) Hypertension: Code(s): I10 - Essential (primary) hypertension Status: Acute Assessment and Plan: Blood pressures initially elevated on presentation, but are now normotensive. Continue Metoprolol. (4) Hyperlipidemia: Code(s): E78.5 - Hyperlipidemia, unspecified Status: Acute Assessment and Plan: Continue high-intensity statin. Subjective Date/time seen: 05/10/23 09:10 Interval history: Reason for visit: NSTEMI HPI: We are consulted for NSTEMI. This is a 73 year old male with coronary artery disease s/p prior stents to the RCA in 2019, hypertension, hyperlipidemia who presented to [facility] for chest pain evaluation. Patient has been having substernal pressure-like chest pain that occurs with exertion for the past four days. Lasts for about 5 minutes or so and resolves with rest. No radiation of pain. No associated shortness of breath, palpitations. Workup showed EKGs with sinus rhythm without ischemic changes. Troponins are elevated at 0.443, 0.433, and 0.422. Patient denies any chest pain at rest. He was started on Heparin drip and admitted for further workup/management of NSTEMI. Patient denies tobacco use. Date of service 05/09: Feeling well this morning. Last night, he had an episode of chest pain. Was given Metoprolol, SL NTG, and Morphine. Chest pain resolved after 15 minutes and has not recurred. EKG obtained at that time without changes. Blood pressures better today. Review of Systems Review of Systems: All systems reviewed & are unremarkable except as noted in HPI and below (HPI) Exam Const: General: comfortable and no acute distress HENMT: Mouth: Yes moist mucous membranes Eyes: General: appearance normal, both eyes and all related structures Sclera: sclerae normal Resp: Effort & Inspection: normal respiratory effort Cardio: Rate: regular rate Rhythm: regular rhythm Skin: General skin exam: normal color Neuro: Speech: normal speech Psych: Mental Status: mental status grossly normal Affect: normal affect Objective Data Vital Signs Vital Signs: Vital Signs - 24 hr 05/09/23 10:37 05/09/23 10:45 05/09/23 11:00 Temperature Pulse Rate 63 58 L 50 L Respiratory Rate 22 H 13 12 Blood Pressure 158/89 H 158/95 H 142/87 H Pulse Oximetry 97 97 96 Oxygen Delivery Room Air Room Air Room Air 05/09/23 11:15 05/09/23 11:30 05/09/23 11:53 Temperature 35.7 C L Pulse Rate 52 L 54 L 62 Respiratory Rate 12 12 16 Blood Pressure 147/87 H 133/90 152/87 H Pulse Oximetry 97 97 99 Oxygen Delivery Room A
[2023-05-10] MEDS: DOXAZOSIN MESYLATE 4 MG TABLET 8 MG PO (10:01)
[2023-05-10] MEDS: CLOPIDOGREL BISULFATE 75 MG TABLET PO (10:01)
[2023-05-10] MEDS: METOPROLOL TARTRATE 25 MG TABLET PO (10:01)
[2023-05-10] MEDS: ISOSORBIDE MONONITRATE 60 MG TAB.ER.24H PO (10:01)
--- NOTE | 2023-05-10 12:57 | PM.DS ---
DS: Admitting Diagnosis Discharge Date 05/10/23 Admitting Diagnosis NSTEMI DS: Discharge Diagnosis Discharge Diagnosis (1) Coronary artery disease: Code(s): I25.10 - Atherosclerotic heart disease of [place] coronary artery without angina pectoris Status: Acute (2) Hypertension: Code(s): I10 - Essential (primary) hypertension Status: Acute DS: Summary Hospital Course Reason for hospitalization: NSTEMI Hospital Course: 73-year-old male with history of coronary artery disease status post stent x2 to the right coronary artery in [place] [address] Brewer, hypertension, hyperlipidemia, esophageal stricture, and kidney stones who presented to the emergency department for evaluation of chest pain. Cardiology was consulted, started on heparin drip for NSTEMI. Underwent cardiac catheterization,Cardiac catheterization shows: 1. The left circumflex is completely occluded in the mid portion. There is a faint wdnz-ve-swfd bridging collateral providing some antegrade flow distal to the complete occlusion. There are faint yixb-cn-keqo collaterals to the very distal OM branches. There are also ihvge-mk-rxln collaterals filling an OM branch. This was likely the culprit for patient's chest pain / NSTEMI. As the vessel is completely occluded and there are already collaterals, will treat medically.? 2. Moderate mid LAD disease. 3. Patent RCA stents with mild in-stent restenosis in the mid portion. 4. Left ventricular end-diastolic pressure of 12mmHg. No stents were placed, plan to treat medically on dual antiplatelet agent. Post cardiac catheterization stay was uneventful. Discharged home in stable condition on 2 antiplatelet agent. Advised to follow up with Cardiology as an outpatient. Status at Discharge Functional status at discharge: independent ambulation Overall status at discharge: patient is back to baseline Time Spent with Patient Time attestation: Total time spent providing and/or coordinating discharge services: Time spent: Greater than 30 minutes Exam Narrative: General: Well-developed, HEENT: Left lid ptosis which is chronic. Pupils reactive. Neck: Supple. No JVD. Respiratory: Lungs are clear to auscultation bilaterally. Cardiovascular: Regular rate and rhythm with S1-S2. Gastrointestinal: Abdomen is soft, nontender, and nondistended with positive bowel sounds. Skin: Warm and dry. No rash or lesions on limited exam. Extremities: No cyanosis, clubbing, or significant edema. Radial and pedal pulses intact. Neurological: Alert. Cranial nerves 2-12 are grossly intact. No gross focal deficits to casual conversation. Psychiatric: Pleasant and cooperative with normal mood and affect. Judgment and insight intact. DS: Data Data Completed and Pending Labs on day of discharge: Labs from last 24 hours 05/10/23 04:42 WBC 7.6 RBC 3.71 L Hgb 11.7 L Hct 34.8 L MCV 93.8 MCH 31.5 MCHC 33.6 RDW 14.6 H Plt Count 191 MPV 9.7 Immature Gran % (Auto) 0.4 Neut % (Auto) 67.5 Lymph % (Auto) 19.7 Gregg % (Auto) 7.8 Eos % (Auto) 4.1 Baso % (Auto) 0.5 Lymph # (Auto) 1.49 Gregg # (Auto) 0.6 Eos # (Auto) 0.3 Baso # (Auto) 0.0 Abs Immat Gran (auto) 0.03 Absolute Neuts (auto) 5.1 Absolute Nucleated RBC 0.000 Nucleated RBC % 0.0 Sodium 135 L Potassium 3.7 Chloride 106 Carbon Dioxide 27 Anion Gap 2 L BUN 20 Creatinine 1.20 Estim Creat Clear Calc 52 Estimated GFR 60 Glucose 96 Calcium 8.4 Discharge Plan Discharge Attending physician on discharge: Staci Collado Consulting providers: Saira Baron Discharging Clinician: Staci Collado Anticipated Discharge Date/Time: 05/10/23 12:55 Patient Disposition: Home, Self-Care Activity: as tolerated Diet: heart healthy Patient Instructions: Antibiotic Form, Heart Attack (GEN), Chest Pain (GEN), Heart Healthy Diet (GEN), Moderate Sedation (DC), Heart Catheterization (DC), High Troponin Levels (GEN)
--- NOTE | 2023-05-17 15:12 | IVDEFINITY ---
Prior to administration of IV Definity the patient was educated on the risks and benefits of the imaging enhancing agent including potential adverse side effects. The patient verbalized understanding. Allergies were verified. No exclusion criteria were identified and at least one of the following inclusion criteria were met: 1) physician request, 2) patient technically difficult to image (per the [place] [employer] guidelines of two or more segments not discernable within the apical view), or 3) questionable left ventricular function. ?
== END 2023-05-10 14:14 | disposition home or self-care (01) | DRG 281 ==
LOC: ANHED 13:36 → ANHIMU 16:34
PROVIDERS: Emergency Medicine; Internal Medicine; Physician Assistant; Admitting Provider Internal Medicine; Emergency Provider Emergency Medicine; PCP Family Medicine; Visit Provider Internal Medicine
PROC: 4A023N7 Measurement of Cardiac Sampling and Pressure, Left Heart, Percutaneous Approach (ICD-10-PCS; CPT 93452; principal; 2023-05-09 09:15)
PROC: 4A023N7 Measurement of Cardiac Sampling and Pressure, Left Heart, Percutaneous Approach (ICD-10-PCS; 2023-05-09 09:15)
DX: I21.4 Non-ST elevation (NSTEMI) myocardial infarction (principal); T82.855A Stenosis of coronary artery stent, initial encounter; I25.10 Atherosclerotic heart disease of native coronary artery without angina pectoris; I10 Essential (primary) hypertension; E78.5 Hyperlipidemia, unspecified; M19.90 Unspecified osteoarthritis, unspecified site; Z96.652 Presence of left artificial knee joint; Z98.1 Arthrodesis status; Z87.442 Personal history of urinary calculi; Z79.82 Long term (current) use of aspirin
CPT/HCPCS: 36415; 71046; 80048; 80053; 80061; 83690; 83735; 84484; 85025; 85610; 85730; 93005; 93458; 99285; A9270; C1760; C1887; C1894; C8929; G0269; J1644; J2250; J2270; J3010; J7030; J7040; Q9957

== ENCOUNTER 2025-01-26 09:18 | Outpatient (CLI) | payer MEDICARE, SELFPAY ==
--- NOTE | ~2025-01-26 | XR_ITS ---
XR lumbar spine min 4V Indication: M54.5 - Low back pain Comparison: None Findings: Postsurgical changes are noted with posterior fixation of S1, L5 L2, L1, T12, the hardware is intact with no fracture. Mild osteopenia is noted. Severe loss of disc height at L4-5 and L5-S1. Soft tissues unremarkable Impression: No acute abnormality. Reviewed, dictated and finalized at location P. EW ANALYST Impression: No acute abnormality.
== END 2025-01-26 09:19 | disposition home or self-care (01) ==
LOC: MICIMG 09:19
PROVIDERS: PCP Family Medicine; Visit Provider Physician Assistant
DX: M54.50 Low back pain, unspecified (principal); G89.29 Other chronic pain; Z98.890 Other specified postprocedural states
CPT/HCPCS: 72110